=== PATIENT | male | born 1990 | race Caucasian/White ===

== ENCOUNTER 2022-01-07 16:04 | Emergency (ER) | payer MEDICAID ==
[~2022-01-07] VITALS: Ht 162.6 cm; Wt 54.5 kg
[2022-01-07] MEDS ORDERED: LIDOcaine 1% W/epiNEPHrine 1:100,000 20ml vial SQ ONE (16:40)
[2022-01-07 17:59] VITALS: BP 118/74
== END 2022-01-07 18:16 | disposition home or self-care (01) ==
LOC: ER 16:05
DX: S01.81XA Laceration without foreign body of other part of head, initial encounter (principal); S09.90XA Unspecified injury of head, initial encounter; T14.8XXA Other injury of unspecified body region, initial encounter; V29.9XXA Motorcycle rider (driver) (passenger) injured in unspecified traffic accident, initial encounter; Y93.89 Activity, other specified; Y92.89 Other specified places as the place of occurrence of the external cause; Y99.8 Other external cause status
CPT/HCPCS: 12013; 70450; 72125; 99284; J3490; J7030

== ENCOUNTER 2022-01-13 17:06 | Emergency (ER) | payer MEDICAID ==
[~2022-01-13] VITALS: Ht 162.6 cm; Wt 54.5 kg
[2022-01-13 17:09] VITALS: BP 138/78
== END 2022-01-13 17:31 | disposition home or self-care (01) ==
LOC: ER 17:07
DX: S01.91XD Laceration without foreign body of unspecified part of head, subsequent encounter (principal); Z48.00 Encounter for change or removal of nonsurgical wound dressing; X58.XXXD Exposure to other specified factors, subsequent encounter
CPT/HCPCS: 99281

== ENCOUNTER 2023-01-21 16:19 | Emergency (ER) | payer MEDICAID ==
[~2023-01-21] VITALS: Ht 160 cm; Wt 56.8 kg
[2023-01-21 16:26] VITALS: BP 112/82; PULSE 87; RESP 16; TEMP 98.4; O2SAT 97
[2023-01-21] MEDS ORDERED: ibuprofen 200mg tablet PO ONE (21:40)
== END 2023-01-21 22:12 | disposition home or self-care (01) ==
LOC: ER 16:19
DX: S20.222A Contusion of left back wall of thorax, initial encounter (principal); S00.83XA Contusion of other part of head, initial encounter; S60.512A Abrasion of left hand, initial encounter; S60.511A Abrasion of right hand, initial encounter; X58.XXXA Exposure to other specified factors, initial encounter; Y93.89 Activity, other specified; Y92.89 Other specified places as the place of occurrence of the external cause; Y99.8 Other external cause status
CPT/HCPCS: 99283